=== PATIENT | female | born 1960 | race Caucasian/White ===

== ENCOUNTER 2017-04-23 17:31 | Emergency (ER) | payer SELFPAY ==
[~2017-04-23] VITALS: Ht 154.9 cm; Wt 54.5 kg
[~2017-04-23 17:31] MED LIST: ALDACTONE 100M100 MG PO; ASPIRIN 32325 MG/TAB PO; ASPIRIN 81M81 MG/TA2 PO; BENICAR 20MG TA20 MG PO; BREO IH; CEFTIN 250250 MG/TAB PO; CHOLESTEROL MED; DUO-KAPS1 CAP PO; FLONASE NASAL S16 GM NS; FOLIC ACID 11 MG/TA1 PO; LASIX 40MG TABL40 MG PO; LIBRIUM 5MG5 MG/CAP PO; LIPITOR 40MG TA40 MG PO; MAG-OX 400400 MG/TAB PO; NITROQUICK0.4 MG SL; PEPCID AC 10MG10 MG PO; PLAVIX 75MG TAB75 MG PO; PREDNISONE20 MG PO; PROTONIX 40MG T40 MG PO; THIAMINE 1100 MG/TAB PO; TOPROL XL 25MG25 MG PO; TUDORZA IH; VENTOLIN0.09 MG IH; ZESTRIL 5MG5 MG PO; ZYRTEC 10MG10 MG PO
[2017-04-23 17:36] VITALS: BP 183/84; TEMP 98.9
[2017-04-23 19:54] LABS: BASO % 0.4 % (0.0-2.0); EOS % 0.6 % (0-4.0); GRAN # 3.1 (1.4-6.5); GRAN % 65.4 % (42.2-75.2); HEMATOCRIT 38.5 % (37.0-47.0); LYMPH # 1.4 (1.2-3.4); LYMPH % 29.1 % (20.0-51.0); MEAN CELL VOLUME 101 fl (80.0-100.0); MEAN CORPUSCULAR HEMOGLOBIN 34 pg (27.0-31.0); MEAN CORPUSCULAR HGB CONC 34 g/dl (33.0-37.0); MEAN PLATELET VOLUME 10.7 fl (7.4-10.4); MONO # 0.2 (0.1-0.6); MONO % 4.3 % (1.7-9.3); RED BLOOD COUNT 3.81 M/mm3 (4.10-5.30); REDCELL DISTRIBUTION WIDTH-CV 13.5 % (11.5-14.5)
[2017-04-23 19:54] LABS: COLLECTION METHOD CLEAN CATCH
[2017-04-23 19:59] LABS: PH 7 (5-8); SQUAMOUS EPITHELIAL 0-2 /hpf; URINE APPEARANCE Clear; URINE BACTERIA Rare /hpf; URINE BILIRUBIN Negative (NEGATIVE); URINE BLOOD Negative (NEGATIVE); URINE COLOR Straw; URINE GLUCOSE Negative (NEGATIVE); URINE KETONE Negative (NEGATIVE); URINE LEUKOCYTE ESTERASE Negative (NEGATIVE); URINE NITRATE Negative (NEGATIVE); URINE PROTEIN(semi-quant) Negative (NEGATIVE); URINE RBC 0-2 /hpf; URINE UROBILINOGEN Negative (NEGATIVE)
[2017-04-23 20:00] LABS: INR 1.4 (0.8-3.0); PROTHROMBIN TIME 16.7 SECONDS (9.7-12.8)
[2017-04-23 20:03] LABS: ALBUMIN 4.4 gm/dL (3.5-5.0); BILIRUBIN,TOTAL 4.5 mg/dL (0.0-1.0); CALCIUM 9.3 mg/dL (8.4-10.2); CREATININE, serum 0.55 mg/dL (0.52-1.25); POTASSIUM 3.7 mmol/L (3.4-5.0); TOTAL PROTEIN 9.2 gm/dL (6.4-8.2)
[2017-04-23 20:10] LABS: PLATELET COUNT 28 K/mm3 (130-400)
[2017-04-23] MEDS ORDERED: ZITHROMAX 250M250 MG PO (21:10)
[2017-04-23] MEDS ORDERED: LIBRIUM 25M25 MG/CAP PO (22:01)
[2017-04-23 22:27] VITALS: PULSE 69
== END 2017-04-23 22:27 | disposition home or self-care (01) ==
LOC: COL.ER 17:31
PROVIDERS: Emergency Medicine
DX: J20.9 Acute bronchitis, unspecified (principal); F10.10 Alcohol abuse, uncomplicated; R13.10 Dysphagia, unspecified; I10 Essential (primary) hypertension; J44.9 Chronic obstructive pulmonary disease, unspecified; Z87.19 Personal history of other diseases of the digestive system; Z79.51 Long term (current) use of inhaled steroids; Z79.52 Long term (current) use of systemic steroids
CPT/HCPCS: J1885; J2060; J7030; J8540